=== PATIENT | male | born 1945 | race Two or more races ===

== ENCOUNTER 2024-12-09 05:49 | Day surgery (SDC) | payer OTHER ==
[2024-12-01 15:04] VITALS: BP 179/92
[~2024-12-09] VITALS: Ht 170.2 cm; Wt 68.5 kg
[~2024-12-09 05:49] MED LIST: AVAPRO300 MG PO; CHILDREN'S ASPI81 MG PO; FINASTERIDE5 MG PO; HYDRODIURIL12.5 MG PO; JANUMET 50-5001 EACH PO; JANUMET XR 50-1 EACH PO; ROSUVASTATIN CAL5 MG PO
[2024-12-09] MEDS ORDERED: BUPIVACAINE HCL/MPF 0.5% 30ML VIAL ONE (07:09)
[2024-12-09] MEDS ORDERED: LIDOCAINE HCL 1%/EPINEPHRINE 20ML VIAL IJ ONE (07:09)
[2024-12-09] MEDS ORDERED: CEFAZOLIN SODIUM 1,000 MG VIAL ONE (07:10)
[2024-12-09] MEDS ORDERED: SUGAMMADEX SODIUM 200 MG/2 ML VIAL IV ONE (08:24)
[2024-12-09] MEDS ORDERED: KETOROLAC TROMETHAMINE 30 MG VIAL ONE (08:53)
[2024-12-09] MEDS ORDERED: TYLENOL ARTHRI650 MG PO (09:29)
[2024-12-09] MEDS ORDERED: TRAMADOL HCL50 MG PO (09:29)
[2024-12-09] MEDS ORDERED: KETO10TA2 PO (09:29)
[2024-12-09] MEDS ORDERED: MIRALAX17 GM PO (09:29)
== END 2024-12-09 13:35 | disposition home or self-care (01) ==
LOC: CIR.AMB 05:49
PROVIDERS: ATTEND Surgery
DX: K40.91 Unilateral inguinal hernia, without obstruction or gangrene, recurrent (principal); I10 Essential (primary) hypertension
CPT/HCPCS: 49521; C1781